=== PATIENT | female | born 1960 | race Caucasian/White ===

== ENCOUNTER 2018-05-09 12:50 | Inpatient (IN) | payer OTHER ==
[2018-05-09 13:13] VITALS: BMI 35.6
--- NOTE | 2018-05-09 15:43 | HP ---
CIWA Score - CIWA Score Nausea/Vomitin Muscle Tremors: 3 Anxiety: 4-Mod. Anxious/Guarded Agitation: 3 Paroxysmal Sweats: No Perspiration Orientation: 1-Uncertain about Date Tacttile Disturbances: 2-Mild Itch/Numbness/Burn Auditory Disturbances: 0-None Visual Disturbances: 0-None Headache: 0-None Present CIWA-Ar Total Score: 15 Admission ROS BHS - HPI Chief Complaint: PATIENT PRESENTS WITH ETOH WITHDRAWAL SYMPTOMS. Allergies/Adverse Reactions: Allergies Allergy/AdvReac Type Severity Reaction Status Date / Time No Known Allergies Allergy Verified 05/09/18 15:35 History of Present Illness: PATIENT IS A 57 YEAR OLD FEMALE THAT PRESENTS WITH ETOH WITHDRAWAL SYMPTOMS. PATIENT BEGAN DRINKING ETOH SINCE AGE 9. USUALLY DRINKS ON THE WEEKENDS BUT PATIENT STARTED DRINKING A FIFTH OF VODKA DAILY X 2 YEARS. PATIENT HAS HX OF SEIZURES, LAST SEIZURE 7 YEARS AGO. DOES REPORT HX OF BLACKOUTS. PATIENT REPORTS HAVING A DRINK FIRST THING IN THE MORNING. THIS IS PATIENTS FIRST ADMISSION TO DETOX. PATIENT HAS PMH OF GASTRIC BYPASS, BACK/KNEE SURGERY, HTN, DEPRESSION/ANXIETY AND CHRONIC BACK PAIN. DENIES SI/HI AND SUICIDE ATTEMPTS. Exam Limitations: No Limitations - Ebola screening Have you traveled outside of the country in the last 21 days: No Have you had contact with anyone from an Ebola affected area: No Have you been sick,other than usual withdrawal symptoms: No - Review of Systems Constitutional: Chills, Night Sweats, Changes in sleep EENT: reports: No Symptoms Reported Respiratory: reports: No Symptoms reported Cardiac: reports: No Symptoms Reported GI: reports: Diarrhea, Nausea, Poor Fluid Intake, Abdominal cramping : reports: No Symptoms Reported Musculoskeletal: reports: Back Pain, Joint Pain, Muscle Pain Integumentary: reports: Flushing, Sweating Neuro: reports: Numbness, Seizure, Tingling, Tremors Endocrine: reports: No Symptoms Reported Hematology: reports: Anemia Psychiatric: reports: Orientated x3, Anxious, Depressed Patient History - Reproductive History Patient is a Female of Child Bearing Age (11 -55 yrs old): No Patient : No - Smoking Cessation Smoking history: Never smoked Have you smoked in the past 12 months: No Hx Chewing Tobacco Use: No Initiated information on smoking cessation: No - Substance & Tx. History Hx Alcohol Use: Yes Hx Substance Use: No Substance Use Type: Alcohol Hx Substance Use Treatment: No - Substances Abused Alcohol Route: Oral Frequency: Daily Amount used: FIFTH OF ETOH Age of first use: 9 Date of Last Use: 05/09/18 Family Disease History - Family Disease History Family Disease History: Other: Mother (ALIVE AND WELL, H/O ETOH USE), Sister ( ALIVE AND WELL) Admission Physical Exam [facility] - Vital Signs Vital Signs: Vital Signs - 24 hr 05/09/18 13:09 Temperature 98.2 F Pulse Rate 110 H Respiratory 20 Rate Blood Pressure 135/41 L - Physical General Appearance: Yes: Appropriately Dressed, Tremorous, Sweating, Anxious HEENTM: Yes: EOMI, Hearing grossly Normal, Normocephalic, Normal Voice, MANASA, Pharynx Normal Respiratory: Yes: Chest Non-Tender, Lungs Clear, Normal Breath Sounds, No Respiratory Distress, No Accessory Muscle Use Neck: Yes: No masses,lesions,Nodules, Supple Breast: Yes: Breast Exam Deferred Cardiology: Yes: Regular Rhythm, Regular Rate, S1, S2 Abdominal: Yes: Normal Bowel Sounds, Non Tender, Soft Genitourinary: Yes: Within Normal Limits Back: Yes: Normal Inspection, Muscle Spasm Musculoskeletal: Yes: full range of Motion, Gait Steady, Back pain, Muscle Pain Extremities: Yes: Normal Range of Motion, Non-Tender, Tremors, Swelling Neurological: Yes: public relations account executive II-XII NML intact, Fully Oriented, Alert, Normal Response , Depressed Affect Integumentary: Yes: Normal Color, Warm, Moist Lymphatic: Yes: Within Normal Limits - Diagnostic (1) Alcohol dependence with uncomplicated withdrawal Current Visit: Yes Status: Acute (2) Depressed affect Current Visit: Yes Status: Chronic (3) Anxiety Current Visit: Yes Status: Chronic (4) HTN (hypertension) Current Visit: Yes Status: Chronic Qualifiers: Hypertension type: essential hypertension Qualified Code(s): I10 - Essential (primary) hypertension (5) Back pain Current Visit: Yes Status: Chronic Qualifiers: Back pain location: low back pain Chronicity: chronic Back pain laterality: unspecified Sciatica presence: without sciatica Qualified Code(s ): M54.5 - Low back pain; G89.29 - Other chronic pain Cleared for Admission [facility] - Detox or Rehab [facility] Level of Care: Medically Managed Detox Regimen/Protocol: Librium [facility] Breath Alcohol Content Breath Alcohol Content: 0.020 Urine Pregancy Test - Result Urine Test Results: Negative- NO Line Present Urine Drug Screen - Results Drug Screen Negative: Yes
[2018-05-09] MEDS ORDERED: guaiFENesin/D-METHORPHAN HB 10 ML UNIT-DOSE CUPS PO PRN (15:50)
[2018-05-09] MEDS ORDERED: hydrOXYzine PAMOATE 50 MG CAPSULE (FP) PO PRN (15:50)
[2018-05-09] MEDS ORDERED: LOPERAMIDE HCL 2 MG CAPSULE PO PRN (15:50)
[2018-05-09] MEDS ORDERED: MAG HYDROX/AL HYDROX/SIMETH 30 ML UNIT-DOSE CUP PO PRN (15:50)
[2018-05-09] MEDS ORDERED: MENTHOL/PHENOL 1 EACH UD MM PRN (15:50)
[2018-05-09] MEDS ORDERED: MAGNESIUM HYDROX 2400MG/30ML ORAL SUSPENSION 30 ML CUP PO PRN (15:50)
[2018-05-09] MEDS ORDERED: IBUPROFEN 400 MG TABLET (FP) PO PRN (15:50)
[2018-05-09] MEDS ORDERED: ACETAMINOPHEN 325 MG TABLET (FP) PO PRN (15:50)
[2018-05-09] MEDS ORDERED: MAGNESIUM CITRATE 300 ML BOTTLE PO PRN (15:50)
[2018-05-09] MEDS ORDERED: P-EPHED 60MG/TRIPROLIDI 2.5MG TABLET PO PRN (15:50)
[2018-05-09] MEDS ORDERED: chlordiazePOXIDE HCL 25 MG CAPSULE PO PRN (15:52)
[2018-05-09] MEDS ORDERED: chlordiazePOXIDE HCL 25 MG CAPSULE PO ONE (17:30)
[2018-05-09] MEDS: THIAMINE HCL 100 MG TABLET (FP) PO SCH (22:11)
[2018-05-09] MEDS: chlordiazePOXIDE HCL 25 MG CAPSULE PO SCH (22:11)
[2018-05-09] MEDS: MELATONIN 5 MG TABLETS PO PRN (22:11)
[2018-05-10 01:03] LABS: URINE APPEARANCE SLCLOUDY; URINE BILIRUBIN NEGATIVE (<2.0 mg/dL); URINE COLOR YELLOW; URINE GLUCOSE (UA) NEGATIVE (NEGATIVE); URINE KETONE NEGATIVE (NEGATIVE); URINE LEUK ESTERASE NEGATIVE (NEGATIVE); URINE NITRITE NEGATIVE (NEGATIVE); URINE PROTEIN 2+ (NEGATIVE); URINE UROBILINOGEN NEGATIVE mg/dL (0.2-1.0)
[2018-05-10 01:35] LABS: CALCIUM OXALATE CRYSTALS RARE /hpf (NONE SEEN); EPI CELLS RARE /HPF (FEW); URINE HYALINE CAST 9 /lpf; URINE MUCUS MODERATE
[2018-05-10] MEDS: chlordiazePOXIDE HCL 25 MG CAPSULE PO SCH ×4 (05:34→22:09)
--- NOTE | 2018-05-10 09:04 | CONSULT ---
[facility] Psychiatric Consult - Data Date of interview: 05/10/18 Admission source: [facility] Identifying data: Patient is a 57 year old single female, without children, unemployed, domiciled, and is supported by disability benefits. This is patient' s first admission to detox at [facility]. Patient admitted to for alcohol dependence. Substance Abuse History: Smoking Cessation. Smoking history: Never smoked. Have you smoked in the past 12 months: No. Hx Chewing Tobacco Use: No. Initiated information on smoking cessation: No. - Substance & Tx. History. Hx Alcohol Use: Yes. Hx Substance Use: No. Substance Use Type: Alcohol. Hx Substance Use Treatment: No. - Substances Abused. Alcohol. Route: Oral. Frequency: Daily. Amount used: FIFTH OF ETOH. Age of first use: 9. Date of Last Use: 05/09/18 Medical History: hypertension, h/o back and knee surgery, bariatric surgery Psychiatric History: Patient's first psychiatric contact was at 13 years of age after she told her parents she was a lesbian. No medications were prescribed. Patient than went two decades without seeing a psychiatrist until her late 30's when she developed worsening anxiety after a breakup with a significant other. She was started on wellbutrin 100mg daily by her primary care physician. Patient currently denies outpatient psychiatric care. She is currently prescribed wellbutrin 100mg TID but reports nonadherence for several months. Patient reports one suicide attempt in her early 20's via overdose. Currenly, patient reports feeling anxious. Physical/Sexual Abuse/Trauma History: denies. Mental Status Exam - Mental Status Exam Alert and Oriented to: Time, Place, Person Cognitive Function: Good Patient Appearance: Well Groomed Mood: Anxious, Euthymic Affect: Mood Congruent Patient Behavior: Appropriate, Cooperative Speech Pattern: Clear, Appropriate Voice Loudness: Normal Thought Process: Intact, Goal Oriented Thought Disorder: Not Present Hallucinations: Denies Suicidal Ideation: Denies Homicidal Ideation: Denies Insight/Judgement: Poor Sleep: Fair Appetite: Fair Muscle strength/Tone: Normal Gait/Station: Normal Psychiatric Findings - Problem List ([place] 1, 2,3) (1) Anxiety disorder Current Visit: Yes Status: Chronic (2) Alcohol dependence with uncomplicated withdrawal Current Visit: Yes Status: Acute - Initial Treatment Plan Initial Treatment Plan: Psychoeducation provided. Detoxification in progress. Patient informed that vistaril 50mg q4 is available for anxiety.
[2018-05-10 10:03] LABS: HEMOGLOBIN 12.4 GM/dL (10.7-15.3); MCH 27.4 pg (25.7-33.7); MCHC 31.8 g/dl (32.0-36.0); MEAN CELL VOLUME 86.1 fl (80-96); MEAN PLT VOLUME 9.3 fl (7.5-11.1); PLATELET COUNT 105 K/MM3 (134-434); RBC 4.53 M/mm3 (3.60-5.2); WHITE BLOOD COUNT 4.6 K/mm3 (4.0-10.0)
--- NOTE | 2018-05-10 10:15 | EKG ---
Test Reason : Blood Pressure : / mmHG Vent. Rate : 105 BPM Atrial Rate : 105 BPM P-R Int : 152 ms QRS Dur : 090 ms QT Int : 350 ms P-R-T Axes : 068 043 013 degrees QTc Int : 462 ms SINUS TACHYCARDIA NONSPECIFIC ST ABNORMALITY NO PREVIOUS ECGS AVAILABLE Confirmed by JOSE RAFAEL MCNAMARA MD ([id number]) on 05/10/2018 10:15:28 AM Referred By: Confirmed By:JOSE RAFAEL MCNAMARA MD
[2018-05-10 10:34] LABS: ALBUMIN 3.6 g/dl (3.4-5.0); ALK PHOS 139 U/L (45-117); ANION GAP 10 MMOL/L (8-16); BILIRUBIN,TOTAL 0.7 mg/dL (0.2-1); BLOOD UREA NITROGEN 16 mg/dL (7-18); CALCIUM 8.9 mg/dL (8.5-10.1); CHLORIDE 106 mmol/L (98-107); CO2 23 mmol/L (21-32); CREATININE 0.6 mg/dL (0.55-1.3); GLUCOSE,RANDOM 156 mg/dL (74-106); POTASSIUM 3.7 mmol/L (3.5-5.1); SGOT/AST 44 U/L (15-37); SGPT/ALT 40 U/L (13-61); SODIUM 138 mmol/L (136-145); TOT PROT 7.6 g/dl (6.4-8.2)
[2018-05-10] MEDS: amLODIPine BESYLATE 10 MG TABLET (FP) PO SCH (10:41)
[2018-05-10] MEDS: PRENATAL VITAMINS W/ FOLIC ACID TABLET (FP) PO SCH (10:41)
[2018-05-10] MEDS ORDERED: LIDOCAINE 5% TOPICAL PATCH TP ONE (12:38)
--- NOTE | 2018-05-10 13:52 | PN ---
[facility] CIWA - CIWA Score Nausea/Vomitin-No Nausea/No Vomiting Muscle Tremors: 4-Moderate,w/Arms Extend Anxiety: 4-Mod. Anxious/Guarded Agitation: 4-Moderately Restless Paroxysmal Sweats: 3 Orientation: 0-Oriented Tacttile Disturbances: 0-None Auditory Disturbances: 0-None Visual Disturbances: 0-None Headache: 0-None Present CIWA-Ar Total Score: 15 BHS Progress Note (SOAP) Subjective: low back pain sweats shakes interrupted sleep irritable Objective: 05/10/18 13:51 Vital Signs Temperature 98.2 F 05/10/18 10:00 Pulse Rate 93 H 05/10/18 10:00 Respiratory Rate 20 05/10/18 10:00 Blood Pressure 160/81 05/10/18 10:00 O2 Sat by Pulse Oximetry (%) Laboratory Tests 05/10/18 05/10/18 05/10/18 00:30 07:00 07:00 WBC 4.6 RBC 4.53 Hgb 12.4 Hct 39.0 MCV 86.1 MCH 27.4 MCHC 31.8 L RDW 16.0 H Plt Count 105 L MPV 9.3 Sodium 138 Potassium 3.7 Chloride 106 Carbon Dioxide 23 Anion Gap 10 BUN 16 Creatinine 0.6 Creat Clearance w eGFR > 60 Random Glucose 156 H Calcium 8.9 Total Bilirubin 0.7 AST 44 H ALT 40 Alkaline Phosphatase 139 H Total Protein 7.6 Albumin 3.6 Urine Color Yellow Urine Appearance Slcloudy Urine pH 6.0 Ur Specific [place] 1.019 Urine Protein 2+ H Urine Glucose (UA) Negative Urine Ketones Negative Urine Blood Negative Urine Nitrite Negative Urine Bilirubin Negative Urine Urobilinogen Negative Ur Leukocyte Esterase Negative Urine WBC (Auto) 1 Urine RBC (Auto) 5 Ur Epithelial Cells Rare Calcium Oxalate Crystal Rare Hyaline Casts 9 Urine Mucus Moderate RPR Titer 05/10/18 07:00 WBC RBC Hgb Hct MCV MCH MCHC RDW Plt Count MPV Sodium Potassium Chloride Carbon Dioxide Anion Gap BUN Creatinine Creat Clearance w eGFR Random Glucose Calcium Total Bilirubin AST ALT Alkaline Phosphatase Total Protein Albumin Urine Color Urine Appearance Urine pH Ur Specific [place] Urine Protein Urine Glucose (UA) Urine Ketones Urine Blood Urine Nitrite Urine Bilirubin Urine Urobilinogen Ur Leukocyte Esterase Urine WBC (Auto) Urine RBC (Auto) Ur Epithelial Cells Calcium Oxalate Crystal Hyaline Casts Urine Mucus RPR Titer Nonreactive aaox3 ambulating no acute distress Assessment: 05/10/18 13:51 withdrawal sx Plan: continue detox increase fluids motrin 800mg prn lidocaine patch daily
[2018-05-10] MEDS: IBUPROFEN 400 MG TABLET (FP) PO PRN (17:29)
[2018-05-10] MEDS: THIAMINE HCL 100 MG TABLET (FP) PO SCH (22:09)
[2018-05-10] MEDS: MELATONIN 5 MG TABLETS PO PRN (22:10)
[2018-05-10] MEDS: LIDOCAINE PATCH REMOVAL MC SCH (22:10)
[2018-05-11] MEDS: chlordiazePOXIDE HCL 25 MG CAPSULE PO SCH ×3 (05:39→17:41)
[2018-05-11] MEDS: IBUPROFEN 400 MG TABLET (FP) PO PRN ×2 (07:28→22:13)
[2018-05-11] MEDS: PRENATAL VITAMINS W/ FOLIC ACID TABLET (FP) PO SCH (10:19)
[2018-05-11] MEDS: amLODIPine BESYLATE 10 MG TABLET (FP) PO SCH (10:19)
[2018-05-11] MEDS: LIDOCAINE 5% TOPICAL PATCH TP SCH (10:19)
[2018-05-11] MEDS: CYCLOBENZAPRINE HCL 5 MG TABLET PO SCH ×2 (14:18→22:13)
--- NOTE | 2018-05-11 15:32 | PN ---
[facility] CIWA - CIWA Score Nausea/Vomitin-No Nausea/No Vomiting Muscle Tremors: 3 Anxiety: 3 Agitation: 3 Paroxysmal Sweats: 2 Orientation: 0-Oriented Tacttile Disturbances: 2-Mild Itch/Numbness/Burn Auditory Disturbances: 0-None Visual Disturbances: 0-None Headache: 0-None Present CIWA-Ar Total Score: 13 S Progress Note (SOAP) Subjective: low back pain sweats shakes interrupted sleep Objective: 05/11/18 15:31 Vital Signs Temperature 98.2 F 05/11/18 15:09 Pulse Rate 88 05/11/18 15:09 Respiratory Rate 18 05/11/18 15:09 Blood Pressure 141/79 05/11/18 15:09 O2 Sat by Pulse Oximetry (%) Laboratory Last Values WBC 4.6 K/mm3 (4.0-10.0) 05/10/18 07:00 RBC 4.53 M/mm3 (3.60-5.2) 05/10/18 07:00 Hgb 12.4 GM/dL (10.7-15.3) 05/10/18 07:00 Hct 39.0 % (32.4-45.2) 05/10/18 07:00 MCV 86.1 fl (80-96) 05/10/18 07:00 MCH 27.4 pg (25.7-33.7) 05/10/18 07:00 MCHC 31.8 g/dl (32.0-36.0) L 05/10/18 07:00 RDW 16.0 % (11.6-15.6) H 05/10/18 07:00 Plt Count 105 K/MM3 (134-434) L 05/10/18 07:00 MPV 9.3 fl (7.5-11.1) 05/10/18 07:00 Sodium 138 mmol/L (136-145) 05/10/18 07:00 Potassium 3.7 mmol/L (3.5-5.1) 05/10/18 07:00 Chloride 106 mmol/L (98-107) 05/10/18 07:00 Carbon Dioxide 23 mmol/L (21-32) 05/10/18 07:00 Anion Gap 10 MMOL/L (8-16) 05/10/18 07:00 BUN 16 mg/dL (7-18) 05/10/18 07:00 Creatinine 0.6 mg/dL (0.55-1.3) 05/10/18 07:00 Creat Clearance w eGFR > 60 (>60) 05/10/18 07:00 POC Glucometer 125 UNITS (80-120) 05/10/18 18:06 Random Glucose 156 mg/dL (74-106) H 05/10/18 07:00 Calcium 8.9 mg/dL (8.5-10.1) 05/10/18 07:00 Total Bilirubin 0.7 mg/dL (0.2-1) 05/10/18 07:00 AST 44 U/L (15-37) H 05/10/18 07:00 ALT 40 U/L (13-61) 05/10/18 07:00 Alkaline Phosphatase 139 U/L (45-117) H 05/10/18 07:00 Total Protein 7.6 g/dl (6.4-8.2) 05/10/18 07:00 Albumin 3.6 g/dl (3.4-5.0) 05/10/18 07:00 Urine Color Yellow 05/10/18 00:30 Urine Appearance Slcloudy 05/10/18 00:30 Urine pH 6.0 (5.0-8.0) 05/10/18 00:30 Ur Specific [place] 1.019 (1.010-1.035) 05/10/18 00:30 Urine Protein 2+ (NEGATIVE) H 05/10/18 00:30 Urine Glucose (UA) Negative (NEGATIVE) 05/10/18 00:30 Urine Ketones Negative (NEGATIVE) 05/10/18 00:30 Urine Blood Negative (NEGATIVE) 05/10/18 00:30 Urine Nitrite Negative (NEGATIVE) 05/10/18 00:30 Urine Bilirubin Negative (<2.0 mg/dL) 05/10/18 00:30 Urine Urobilinogen Negative mg/dL (0.2-1.0) 05/10/18 00:30 Ur Leukocyte Esterase Negative (NEGATIVE) 05/10/18 00:30 Urine WBC (Auto) 1 /hpf (3-5) 18 00:30 Urine RBC (Auto) 5 /hpf (0-3) 18 00:30 Ur Epithelial Cells Rare /HPF (FEW) 05/10/18 00:30 Calcium Oxalate Crystal Rare /hpf (NONE SEEN) 05/10/18 00:30 Hyaline Casts 9 /lpf 05/10/18 00:30 Urine Mucus Moderate 05/10/18 00:30 RPR Titer Nonreactive (NONREACTIVE) 05/10/18 07:00 Aox3 no distress, irritable no adventitious breath sounds steady gait , full ROM , + low back pain Assessment: 05/11/18 15:31 withdrawal sx Plan: lidocaine patch increase fluids continue detox continue to monitor
[2018-05-11] MEDS: THIAMINE HCL 100 MG TABLET (FP) PO SCH (22:13)
[2018-05-11] MEDS: chlordiazePOXIDE 5 MG CAPSULE PO SCH (22:13)
[2018-05-11] MEDS: LIDOCAINE PATCH REMOVAL MC SCH (22:14)
[2018-05-11] MEDS: MELATONIN 5 MG TABLETS PO PRN (22:14)
[2018-05-12] MEDS: chlordiazePOXIDE 5 MG CAPSULE PO SCH ×3 (05:34→17:49)
[2018-05-12] MEDS: CYCLOBENZAPRINE HCL 5 MG TABLET PO SCH ×3 (05:35→22:31)
[2018-05-12] MEDS: PRENATAL VITAMINS W/ FOLIC ACID TABLET (FP) PO SCH (10:26)
[2018-05-12] MEDS: amLODIPine BESYLATE 10 MG TABLET (FP) PO SCH (10:26)
[2018-05-12] MEDS: LIDOCAINE 5% TOPICAL PATCH TP SCH (10:27)
[2018-05-12] MEDS: IBUPROFEN 400 MG TABLET (FP) PO PRN ×2 (12:19→22:31)
--- NOTE | 2018-05-12 14:51 | PN ---
BHS Progress Note (SOAP) Subjective: feeling better no tremor less sweat no gi distress Objective: 05/12/18 14:50 Vital Signs Temperature 99.0 F 05/12/18 14:41 Pulse Rate 87 05/12/18 14:41 Respiratory Rate 16 05/12/18 14:41 Blood Pressure 122/70 05/12/18 14:41 O2 Sat by Pulse Oximetry (%) Laboratory Last Values WBC 4.6 K/mm3 (4.0-10.0) 05/10/18 07:00 RBC 4.53 M/mm3 (3.60-5.2) 05/10/18 07:00 Hgb 12.4 GM/dL (10.7-15.3) 05/10/18 07:00 Hct 39.0 % (32.4-45.2) 05/10/18 07:00 MCV 86.1 fl (80-96) 05/10/18 07:00 MCH 27.4 pg (25.7-33.7) 05/10/18 07:00 MCHC 31.8 g/dl (32.0-36.0) L 05/10/18 07:00 RDW 16.0 % (11.6-15.6) H 05/10/18 07:00 Plt Count 105 K/MM3 (134-434) L 05/10/18 07:00 MPV 9.3 fl (7.5-11.1) 05/10/18 07:00 Sodium 138 mmol/L (136-145) 05/10/18 07:00 Potassium 3.7 mmol/L (3.5-5.1) 05/10/18 07:00 Chloride 106 mmol/L (98-107) 05/10/18 07:00 Carbon Dioxide 23 mmol/L (21-32) 05/10/18 07:00 Anion Gap 10 MMOL/L (8-16) 05/10/18 07:00 BUN 16 mg/dL (7-18) 05/10/18 07:00 Creatinine 0.6 mg/dL (0.55-1.3) 05/10/18 07:00 Creat Clearance w eGFR > 60 (>60) 05/10/18 07:00 POC Glucometer 125 UNITS (80-120) 05/10/18 18:06 Random Glucose 156 mg/dL (74-106) H 05/10/18 07:00 Calcium 8.9 mg/dL (8.5-10.1) 05/10/18 07:00 Total Bilirubin 0.7 mg/dL (0.2-1) 05/10/18 07:00 AST 44 U/L (15-37) H 05/10/18 07:00 ALT 40 U/L (13-61) 05/10/18 07:00 Alkaline Phosphatase 139 U/L (45-117) H 05/10/18 07:00 Total Protein 7.6 g/dl (6.4-8.2) 05/10/18 07:00 Albumin 3.6 g/dl (3.4-5.0) 05/10/18 07:00 Urine Color Yellow 05/10/18 00:30 Urine Appearance Slcloudy 05/10/18 00:30 Urine pH 6.0 (5.0-8.0) 05/10/18 00:30 Ur Specific [place] 1.019 (1.010-1.035) 05/10/18 00:30 Urine Protein 2+ (NEGATIVE) H 05/10/18 00:30 Urine Glucose (UA) Negative (NEGATIVE) 05/10/18 00:30 Urine Ketones Negative (NEGATIVE) 05/10/18 00:30 Urine Blood Negative (NEGATIVE) 05/10/18 00:30 Urine Nitrite Negative (NEGATIVE) 05/10/18 00:30 Urine Bilirubin Negative (<2.0 mg/dL) 05/10/18 00:30 Urine Urobilinogen Negative mg/dL (0.2-1.0) 05/10/18 00:30 Ur Leukocyte Esterase Negative (NEGATIVE) 05/10/18 00:30 Urine WBC (Auto) 1 /hpf (3-5) 05/10/18 00:30 Urine RBC (Auto) 5 /hpf (0-3) 05/10/18 00:30 Ur Epithelial Cells Rare /HPF (FEW) 05/10/18 00:30 Calcium Oxalate Crystal Rare /hpf (NONE SEEN) 18 00:30 Hyaline Casts 9 /lpf 05/10/18 00:30 Urine Mucus Moderate 05/10/18 00:30 RPR Titer Nonreactive (NONREACTIVE) 05/10/18 07:00 lab noted Assessment: 05/12/18 14:50 mild withdrawal sx Plan: medically supervised detox
[2018-05-12] MEDS: chlordiazePOXIDE HCL 10 MG CAPSULE PO SCH (22:31)
[2018-05-12] MEDS: LIDOCAINE PATCH REMOVAL MC SCH (22:31)
[2018-05-12] MEDS: THIAMINE HCL 100 MG TABLET (FP) PO SCH (22:31)
[2018-05-12] MEDS: MELATONIN 5 MG TABLETS PO PRN (22:31)
[2018-05-13] MEDS: chlordiazePOXIDE HCL 10 MG CAPSULE PO SCH (05:35)
[2018-05-13] MEDS: CYCLOBENZAPRINE HCL 5 MG TABLET PO SCH (07:43)
--- NOTE | 2018-05-13 08:44 | DS ---
[facility] Detox Discharge Summary Admission Date: 05/09/18 Discharge Date: 05/13/18 - History Present History: Alcohol Dependence - Physical Exam Results Vital Signs: Vital Signs Temperature 97.7 F 05/13/18 06:00 Pulse Rate 75 05/13/18 06:00 Respiratory Rate 18 05/13/18 06:00 Blood Pressure 126/82 05/13/18 06:00 O2 Sat by Pulse Oximetry (%) - Treatment Hospital Course: Detox Protocol Followed, Detoxed Safely, Responded well, Discharged Condition Good, Rehab Referral Accepted - Medication Discharge Medications: Ambulatory Orders Bupropion HCl [Wellbutrin -] 75 mg PO BID 05/09/18 Amlodipine Besylate [Norvasc -] 10 mg PO DAILY #30 tablet 05/12/18 - Diagnosis (1) Alcohol dependence with uncomplicated withdrawal Current Visit: Yes Status: Chronic (2) Anxiety Current Visit: Yes Status: Chronic (3) Anxiety disorder Current Visit: Yes Status: Chronic (4) Back pain Current Visit: Yes Status: Chronic Qualifiers: Back pain location: low back pain Chronicity: chronic Back pain laterality: unspecified Sciatica presence: without sciatica Qualified Code(s ): M54.5 - Low back pain; G89.29 - Other chronic pain (5) Depressed affect Current Visit: Yes Status: Chronic (6) HTN (hypertension) Current Visit: Yes Status: Chronic Qualifiers: Hypertension type: essential hypertension Qualified Code(s): I10 - Essential (primary) hypertension - AMA Did Patient Leave Against Medical Advice: No (referred to [facility] outpatient)
[2018-05-13] MEDS: amLODIPine BESYLATE 10 MG TABLET (FP) PO SCH (09:12)
[2018-05-13] MEDS: LIDOCAINE 5% TOPICAL PATCH TP SCH (09:12)
[2018-05-13] MEDS: PRENATAL VITAMINS W/ FOLIC ACID TABLET (FP) PO SCH (09:12)
[2018-05-13 09:16] VITALS: BP 130/60; PULSE 84; TEMP 98.6
== END 2018-05-13 09:45 | disposition home or self-care (01) | DRG 775 ==
LOC: YASAS 12:50 → Y6N 16:49
PROC: HZ2ZZZZ Detoxification Services for Substance Abuse Treatment (ICD-10-PCS; principal; 2018-05-09)
DX: F10.230 Alcohol dependence with withdrawal, uncomplicated (principal); F41.9 Anxiety disorder, unspecified; F32.9 Major depressive disorder, single episode, unspecified; I10 Essential (primary) hypertension; M54.5 Low back pain; G89.29 Other chronic pain; Z88.4 Allergy status to anesthetic agent
CPT/HCPCS: 36415; 80053; 81003; 81015; 82962; 85027; 86593; 93005; 93010

== ENCOUNTER 2018-06-28 14:53 | Inpatient (IN) | payer OTHER ==
[2018-06-28 16:04] VITALS: BMI 35.6
--- NOTE | 2018-06-28 16:44 | HP ---
CIWA Score Nausea/Vomitin Muscle Tremors: 4-Moderate,w/Arms Extend Anxiety: 4-Mod. Anxious/Guarded Agitation: 1-Slight > Activity Paroxysmal Sweats: No Perspiration Orientation: 0-Oriented Tacttile Disturbances: 0-None Auditory Disturbances: 0-None Visual Disturbances: 2-Mild Sensitivity Headache: 3-Moderate CIWA-Ar Total Score: 16 - Admission Criteria [facility] Guidelines: Admission for Medically Managed Detox: Requires at least one of the followin. CIWA greater than 12 2. Seizures within the past 24 hours 3. Delirium tremens within the past 24 hours 4. Hallucinations within the past 24 hours 5. Acute intervention needed for co occurring medical disorder 6. Acute intervention needed for co occurring psychiatric disorder 7. Severe withdrawal that cannot be handled at a lower level of care (continued vomiting, continued diarrhea, abnormal vital signs) requiring intravenous medication and/or fluids 8. Admission ROS [facility] Allergies/Adverse Reactions: Allergies Allergy/AdvReac Type Severity Reaction Status Date / Time No Known Allergies Allergy Verified 06/28/18 19:04 History of Present Illness: patient here requesting detox from etoh use , report 3 pints/day x 2 years , prior to which she was drinking socially not daily , started drinking heavily after losing job and end of relationship , denies seizures , reports starts drinking in the mornings upon awakening , + tremors if not drinking , tried to stop drinking on her own and could not due to severe withdrawal symptoms , + blackouts , + falls while intoxicated most recently 1 year ago hit head no injuries , + driving in the past , sold car 2 years ago , denies legal issues / dui/ dwi . utox + thc, + bzo pt was at [facility] overnight , not admitted 2/2 insurance, referred to this facility , states was given 1 pill . cannabis use : denies tobacco : denies denies illicits PMHX : knee ayala , chronic LBP , htn psych : depression, anxiety pshx : spine surgery 20 years ago , left knee 2 months ago arthroscopic surgery , bariatric surgery6 years ago meds : anti-htn , does not recall name, did not bring . Exam Limitations: Clinical Condition - Ebola screening Have you traveled outside of the country in the last 21 days: No Have you had contact with anyone from an Ebola affected area: No Have you been sick,other than usual withdrawal symptoms: No Do you have a fever: No - Review of Systems Constitutional: See HPI EENT: reports: Other (glasses) Respiratory: reports: No Symptoms reported Cardiac: reports: No Symptoms Reported GI: reports: Nausea, Poor Appetite, Indigestion, Other (symptoms above since bariatric surgery) : reports: No Symptoms Reported Musculoskeletal: reports: Back Pain, Joint Pain Integumentary: reports: Other Neuro: reports: Headache, Tremors Psychiatric: reports: Orientated x3, Anxious, Depressed Patient History - Patient Medical History Hx Asthma: No Hx Chronic Obstructive Pulmonary Disease (COPD): No Hx Cardiac Disorders: No Hx Hypertension: Yes (on meds.) Hx Seizures: Yes (drug related seizure in 2010) Hx Diabetes: No Hx Gastrointestinal Disorders: No Hx Genitourinary Disorders: No Hx Sexually Transmitted Disorders: No Hx Renal Disease (ESRD): No Hx Depression: Yes Hx Suicide Attempt: No Hx Schizophrenia: No - Patient Surgical History Past Surgical History: Yes Hx Abdominal Surgery: Yes (Gastric bypass sx in 2007) Hx Orthopedic Surgery: Yes (L knee sx 9 months ago) Other Surgical History: Back sx 20 yrs ago. - PPD History Date: 05/11/18 - Smoking Cessation Smoking history: Never smoked Have you smoked in the past 12 months: No Hx Chewing Tobacco Use: No - Substances Abused Alcohol Route: Oral Frequency: Daily Amount used: liquor- 3 pints Age of first use: 13 Date of Last Use: 06/27/18 Family Disease History - Family Disease History Family Disease History: Other: Mother (ALIVE AND WELL, H/O ETOH USE), Sister ( ALIVE AND WELL) Admission Physical Exam [facility] - Vital Signs Vital Signs: Vital Signs - 24 hr 06/28/18 16:01 Temperature 96.8 F L Pulse Rate 127 H Respiratory 17 Rate Blood Pressure 149/86 - Physical General Appearance: Yes: Disheveled, Moderate Distress, Obese, Tremorous, Anxious HEENTM: Yes: EOMI, Hearing grossly Normal, Normocephalic, Pharynx Normal Respiratory: Yes: Chest Non-Tender, Lungs Clear, Normal Breath Sounds Neck: Yes: No masses,lesions,Nodules, Trachea in good position Breast: Yes: Breast Exam Deferred Cardiology: Yes: Regular Rhythm, Regular Rate, S1, S2, Tachycardia Abdominal: Yes: Normal Bowel Sounds, Soft, Protuberent Genitourinary: Yes: Within Normal Limits Back: Yes: Muscle Spasm, Surgical Scar Musculoskeletal: Yes: Back pain, Joint Stiffness, Other (antalgic gait , chronic knee pain) Extremities: Yes: Normal Capillary Refill, Tremors, Pedal Edema, Swelling Neurological: Yes: Motor Strength 5/5, Depressed Affect Integumentary: Yes: Normal Color, Dry, Warm - Diagnostic (1) Alcohol dependence with uncomplicated withdrawal Current Visit: No Status: Acute BHS Breath Alcohol Content Breath Alcohol Content: 0 Urine Pregancy Test - Result Urine Test Results: Negative- NO Line Present Urine Drug Screen - Results Drug Screen Negative: No Urine Drug Screen Results: THC-Marijuana, BZO-Benzodiazepines
[2018-06-28] MEDS ORDERED: MAGNESIUM CITRATE 300 ML BOTTLE PO PRN (16:51)
[2018-06-28] MEDS ORDERED: chlordiazePOXIDE HCL 25 MG CAPSULE PO PRN (16:51)
[2018-06-28] MEDS ORDERED: MENTHOL/PHENOL 1 EACH UD MM PRN (16:51)
[2018-06-28] MEDS ORDERED: MAGNESIUM HYDROX 2400MG/30ML ORAL SUSPENSION 30 ML CUP PO PRN (16:51)
[2018-06-28] MEDS ORDERED: P-EPHED 60MG/TRIPROLIDI 2.5MG TABLET PO PRN (16:51)
[2018-06-28] MEDS ORDERED: guaiFENesin/D-METHORPHAN HB 10 ML UNIT-DOSE CUPS PO PRN (16:51)
[2018-06-28] MEDS: MAG HYDROX/AL HYDROX/SIMETH 30 ML UNIT-DOSE CUP PO PRN (19:50)
[2018-06-28] MEDS ORDERED: MELATONIN 5 MG TABLETS PO PRN (22:00)
[2018-06-28] MEDS: THIAMINE HCL 100 MG TABLET (FP) PO SCH (22:20)
[2018-06-28] MEDS: chlordiazePOXIDE HCL 25 MG CAPSULE PO SCH (22:20)
[2018-06-29] MEDS: chlordiazePOXIDE HCL 25 MG CAPSULE PO SCH ×4 (05:20→22:10)
[2018-06-29] MEDS: MAG HYDROX/AL HYDROX/SIMETH 30 ML UNIT-DOSE CUP PO PRN (07:30)
[2018-06-29] MEDS ORDERED: ONDANSETRON *ODT* 4 MG TABLET SL PRN (09:45)
[2018-06-29] MEDS: amLODIPine BESYLATE 10 MG TABLET (FP) PO SCH (10:13)
[2018-06-29] MEDS: PRENATAL VITAMINS W/ FOLIC ACID TABLET (FP) PO SCH (10:13)
[2018-06-29 10:46] LABS: HEMATOCRIT 38.3 % (32.4-45.2); HEMOGLOBIN 11.9 GM/dL (10.7-15.3); MCH 26.7 pg (25.7-33.7); MCHC 31.1 g/dl (32.0-36.0); MEAN CELL VOLUME 85.9 fl (80-96); MEAN PLT VOLUME 9.8 fl (7.5-11.1); PLATELET COUNT 85 K/MM3 (134-434); RBC 4.46 M/mm3 (3.60-5.2); RDW 18.2 % (11.6-15.6); WHITE BLOOD COUNT 3.4 K/mm3 (4.0-10.0)
[2018-06-29 11:07] LABS: ALBUMIN 3.5 g/dl (3.4-5.0); ALK PHOS 134 U/L (45-117); ANION GAP 11 MMOL/L (8-16); BILIRUBIN,TOTAL 0.8 mg/dL (0.2-1); BLOOD UREA NITROGEN 17 mg/dL (7-18); CHLORIDE 103 mmol/L (98-107); CO2 24 mmol/L (21-32); CREATININE 0.7 mg/dL (0.55-1.3); GLUCOSE,RANDOM 88 mg/dL (74-106); POTASSIUM 3.2 mmol/L (3.5-5.1); SGOT/AST 145 U/L (15-37); SGPT/ALT 118 U/L (13-61); SODIUM 138 mmol/L (136-145); TOT PROT 7.4 g/dl (6.4-8.2)
--- NOTE | 2018-06-29 14:11 | PN ---
[facility] CIWA - CIWA Score Nausea/Vomitin Muscle Tremors: 4-Moderate,w/Arms Extend Anxiety: 4-Mod. Anxious/Guarded Agitation: 4-Moderately Restless Paroxysmal Sweats: 1-Minimal Palms Moist Orientation: 0-Oriented Tacttile Disturbances: 0-None Auditory Disturbances: 0-None Visual Disturbances: 0-None Headache: 0-None Present CIWA-Ar Total Score: 15 BHS Progress Note (SOAP) Subjective: ANXIETY,MUSCLE CRAMPS ON LOWER RIGHT LEG AT NIGHT, NAUSEA. PT REPORTS A BRUISED AREA ON RIGHT INNER ANKLE. DENIES/DOES NOT REMEMBER ANY KNOWN TRUAMA TO AREA. Objective: 06/29/18 14:07 Vital Signs 06/29/18 06/29/18 06:39 09:52 Temperature 98.2 F 97.8 F Pulse Rate 101 H 114 H Respiratory 18 18 Rate Blood Pressure 142/93 130/86 Laboratory Tests 06/29/18 06/29/18 06/29/18 07:50 07:50 07:50 WBC 3.4 L RBC 4.46 Hgb 11.9 Hct 38.3 MCV 85.9 MCH 26.7 MCHC 31.1 L RDW 18.2 H Plt Count 85 L MPV 9.8 Sodium 138 Potassium 3.2 L Chloride 103 Carbon Dioxide 24 Anion Gap 11 BUN 17 Creatinine 0.7 Creat Clearance w eGFR > 60 Random Glucose 88 Calcium 9.0 Total Bilirubin 0.8 AST 145 H ALT 118 H Alkaline Phosphatase 134 H Total Protein 7.4 Albumin 3.5 RPR Titer Nonreactive K+ =3.2 ELEVATED LIVER ENZYMES PLT 85 Assessment: 06/29/18 14:08 WITHDRAWAL SX HYPOKALEMAI Plan: CONTINUE DETOX MONITOR PT FOR BLEEDING.
[2018-06-29] MEDS ORDERED: RANITIDINE HCL 150 MG TABLET (FP) PO ONE (15:19)
[2018-06-29] MEDS: IBUPROFEN 400 MG TABLET (FP) PO PRN ×2 (15:20→22:10)
[2018-06-29] MEDS: RANITIDINE HCL 150 MG TABLET (FP) PO SCH (22:10)
[2018-06-29] MEDS: THIAMINE HCL 100 MG TABLET (FP) PO SCH (22:10)
[2018-06-30] MEDS: chlordiazePOXIDE HCL 25 MG CAPSULE PO SCH ×3 (05:13→17:17)
[2018-06-30] MEDS: IBUPROFEN 400 MG TABLET (FP) PO PRN ×4 (05:57→22:20)
[2018-06-30] MEDS: PRENATAL VITAMINS W/ FOLIC ACID TABLET (FP) PO SCH (10:07)
[2018-06-30] MEDS: RANITIDINE HCL 150 MG TABLET (FP) PO SCH ×2 (10:07→22:22)
[2018-06-30] MEDS: amLODIPine BESYLATE 10 MG TABLET (FP) PO SCH (10:07)
[2018-06-30] MEDS: ACETAMINOPHEN 325 MG TABLET (FP) PO PRN (13:37)
[2018-06-30] MEDS: CYCLOBENZAPRINE HCL 10 MG TABLET (FP) PO PRN ×2 (14:59→22:22)
--- NOTE | 2018-06-30 17:04 | PN ---
S CIWA - CIWA Score Nausea/Vomitin Muscle Tremors: 3 Anxiety: 3 Agitation: 3 Paroxysmal Sweats: 3 Orientation: 0-Oriented Tacttile Disturbances: 0-None Auditory Disturbances: 0-None Visual Disturbances: 0-None Headache: 1-Very Mild CIWA-Ar Total Score: 15 S Progress Note (SOAP) Subjective: Headache, stomach ache, nausea, interrupted sleep, back pain Objective: 06/30/18 17:02 Last Vital Signs Temp Pulse Resp BP Pulse Ox 98.4 F 103 H 20 133/84 06/30/18 13:21 06/30/18 13:21 06/30/18 13:21 06/30/18 13:21 Laboratory Tests 06/29/18 06/29/18 06/29/18 07:50 07:50 07:50 WBC 3.4 L RBC 4.46 Hgb 11.9 Hct 38.3 MCV 85.9 MCH 26.7 MCHC 31.1 L RDW 18.2 H Plt Count 85 L MPV 9.8 Sodium 138 Potassium 3.2 L Chloride 103 Carbon Dioxide 24 Anion Gap 11 BUN 17 Creatinine 0.7 Creat Clearance w eGFR > 60 Random Glucose 88 Calcium 9.0 Total Bilirubin 0.8 AST 145 H ALT 118 H Alkaline Phosphatase 134 H Total Protein 7.4 Albumin 3.5 RPR Titer Nonreactive Labs reviewed: K 3.2, elevated LFTs Assessment: 06/30/18 17:09 Withdrawal symptoms Noted with hypokalemia and elevated LFTs Plan: Continue detox Encouraged PO water hydration Hypokalemia: K Dur 40 Meq PO x 2 doses (at least 4 hrs apart), repeat serum K+ level in AM) Elevated LFTs: most likely due to alcohol dependence; repeat AST, ALT
[2018-06-30] MEDS ORDERED: POTASSIUM CHLORIDE TABS 20 MEQ TABLET.ER (FP) PO ONE ×2 (17:06→22:00)
[2018-06-30] MEDS: THIAMINE HCL 100 MG TABLET (FP) PO SCH (22:21)
[2018-06-30] MEDS: chlordiazePOXIDE 5 MG CAPSULE PO SCH (22:22)
[2018-07-01] MEDS: chlordiazePOXIDE 5 MG CAPSULE PO SCH ×3 (05:17→17:19)
[2018-07-01] MEDS: IBUPROFEN 400 MG TABLET (FP) PO PRN ×3 (05:21→20:34)
[2018-07-01] MEDS: RANITIDINE HCL 150 MG TABLET (FP) PO SCH ×2 (10:27→22:06)
[2018-07-01] MEDS: amLODIPine BESYLATE 10 MG TABLET (FP) PO SCH (10:27)
[2018-07-01] MEDS: PRENATAL VITAMINS W/ FOLIC ACID TABLET (FP) PO SCH (10:27)
[2018-07-01 10:31] LABS: POTASSIUM 4.3 mmol/L (3.5-5.1)
--- NOTE | 2018-07-01 16:33 | PN ---
S Progress Note (SOAP) Subjective: pain to both knees requesting motrin 800mg "Flexeril does not do anything for my pain but makes me loopy" Objective: 07/01/18 16:30 A & O x 3 ambulating with a slight limp s/p pain Vital Signs Temperature 98.8 F 07/01/18 13:19 Pulse Rate 91 H 07/01/18 13:19 Respiratory Rate 20 07/01/18 13:19 Blood Pressure 111/79 07/01/18 13:19 O2 Sat by Pulse Oximetry (%) Assessment: 07/01/18 16:31 withdrawa sx Knee pain s/p previous knee surgeries Plan: continue detox Flexeril d/c, motrin 800mg ordered prn cane to assist with ambulation
[2018-07-01] MEDS: ACETAMINOPHEN 325 MG TABLET (FP) PO PRN (17:22)
[2018-07-01] MEDS: chlordiazePOXIDE HCL 10 MG CAPSULE PO SCH (22:05)
[2018-07-01] MEDS: THIAMINE HCL 100 MG TABLET (FP) PO SCH (22:06)
[2018-07-02] MEDS: IBUPROFEN 400 MG TABLET (FP) PO PRN (05:39)
[2018-07-02] MEDS: chlordiazePOXIDE HCL 10 MG CAPSULE PO SCH (05:39)
[2018-07-02 06:26] VITALS: BP 140/92; PULSE 82; TEMP 97
--- NOTE | 2018-07-02 11:01 | DS ---
[facility] Detox Discharge Summary Admission Date: 06/28/18 Discharge Date: 07/02/18 - History Present History: Alcohol Dependence Additional Comments: Patient completed detox successfully. Patient is A, A, Ox3, in nad, vss, ambulatory. Patient instructed to follow up with PCP within 1-2 weeks. Pertinent Past History: Alcohol dependence HTN GERD Seizure disorder Depression - Physical Exam Results Vital Signs: Vital Signs Temperature 97 F L 07/02/18 06:25 Pulse Rate 82 07/02/18 06:25 Respiratory Rate 20 07/02/18 06:25 Blood Pressure 140/92 07/02/18 06:25 O2 Sat by Pulse Oximetry (%) Pertinent Admission Physical Exam Findings: Withdrawal symptoms Laboratory Tests 06/29/18 06/29/18 06/29/18 07:50 07:50 07:50 WBC 3.4 L RBC 4.46 Hgb 11.9 Hct 38.3 MCV 85.9 MCH 26.7 MCHC 31.1 L RDW 18.2 H Plt Count 85 L MPV 9.8 Sodium 138 Potassium 3.2 L Chloride 103 Carbon Dioxide 24 Anion Gap 11 BUN 17 Creatinine 0.7 Creat Clearance w eGFR > 60 Random Glucose 88 Calcium 9.0 Total Bilirubin 0.8 AST 145 H ALT 118 H Alkaline Phosphatase 134 H Total Protein 7.4 Albumin 3.5 RPR Titer Nonreactive 07/01/18 07:10 WBC RBC Hgb Hct MCV MCH MCHC RDW Plt Count MPV Sodium Potassium 4.3 Chloride Carbon Dioxide Anion Gap BUN Creatinine Creat Clearance w eGFR Random Glucose Calcium Total Bilirubin AST 57 H ALT 82 H Alkaline Phosphatase Total Protein Albumin RPR Titer Labs reviewed - Treatment Hospital Course: Detox Protocol Followed, Detoxed Safely, Responded well, Discharged Condition Good - Medication Discharge Medications: Ambulatory Orders Bupropion HCl [Wellbutrin -] 75 mg PO BID 05/09/18 Amlodipine Besylate [Norvasc -] 10 mg PO DAILY #30 tablet 05/12/18 - Diagnosis (1) Hypokalemia Status: Resolved (2) Elevated LFTs Status: Acute (3) GERD (gastroesophageal reflux disease) Status: Chronic (4) Seizure Status: Chronic (5) Depression Status: Chronic (6) Alcohol dependence with uncomplicated withdrawal Status: Acute (7) HTN (hypertension) Status: Chronic Qualifiers: Hypertension type: essential hypertension Qualified Code(s): I10 - Essential (primary) hypertension - AMA Did Patient Leave Against Medical Advice: No (F/U with PCP within 1-2 weeks)
== END 2018-07-02 09:16 | disposition home or self-care (01) | DRG 775 ==
LOC: YASAS 14:53 → Y3N 18:25
PROC: HZ2ZZZZ Detoxification Services for Substance Abuse Treatment (ICD-10-PCS; principal; 2018-06-28)
DX: F10.230 Alcohol dependence with withdrawal, uncomplicated (principal); F32.9 Major depressive disorder, single episode, unspecified; F41.9 Anxiety disorder, unspecified; I10 Essential (primary) hypertension; E87.6 Hypokalemia; K21.9 Gastro-esophageal reflux disease without esophagitis; R94.5 Abnormal results of liver function studies; M54.5 Low back pain; M25.561 Pain in right knee; M25.562 Pain in left knee; Z86.69 Personal history of other diseases of the nervous system and sense organs; R26.89 Other abnormalities of gait and mobility; Z99.89 Dependence on other enabling machines and devices; Z98.890 Other specified postprocedural states; R11.0 Nausea
CPT/HCPCS: 36415; 80053; 84132; 84450; 84460; 85027; 86593; Q0162